=== PATIENT | female | born 1990 | race Caucasian/White ===

== ENCOUNTER → 2020-04-16 | Outpatient (CLI) | payer SELFPAY ==
--- NOTE | 2020-04-16 12:35 | Diagnostic Imaging Report ---
Indication: Back pain. Time of exam: 11:56 AM AP, lateral and both oblique views of the lumbar spine were obtained. Curvature and alignment of the lumbar spine is normal. Vertebral body heights are well maintained. No acute compression fracture seen. There is some degenerative disc disease at L5-S1 level with disc space narrowing and marginal spurring. No definite spondylolysis or spondylolisthesis is identified. Impression: L5-S1 degenerative disc disease. No other significant abnormality is detected. Dictated by: Dictated on workstation # [id number]
== END ==
LOC: RAD 11:40
PROVIDERS: ATTEND Nurse Practitioner Family
DX: M51.37 Other intervertebral disc degeneration, lumbosacral region (principal); Z87.828 Personal history of other (healed) physical injury and trauma
CPT/HCPCS: 72110

== ENCOUNTER 2021-02-02 12:05 | Emergency (ER) | payer SELFPAY ==
[~2021-02-02] VITALS: Ht 167.7 cm; Wt 115.7 kg
--- NOTE | 2021-02-02 13:12 | ED General ---
General Stated Complaint: COVID POSITIVE BODY ACHES,SORE THROAT Source of Information: Patient Exam Limitations: No Limitations (ANKITA ERICKSON APRN) History of Present Illness Date Seen by Provider: Feb 02, 2021 Time Seen by Provider: 13:10 Initial Comments 30-year-old female with history of obesity depression and questionable history of asthma presents to ER with worsening cough productive in nature and shortness of breath. She tested positive for Covid on 01/29/2021 and became symptomatic on , 01/28/2021. She is scheduled for monoclonal antibody infusion tomorrow. She follows with [facility] and was referred to ER for worsening symptoms. She is currently on prednisone. Timing/Duration: 3-4 Days Severity: Moderate Associated Systoms: Cough; No Headaches; Malaise; No Nausea/Vomiting; Weakness (ANKITA ERICKSON APRN) Allergies and Home Medications Allergies Coded Allergies: No Known Drug Allergies (Unverified , 02/02/21) Patient Home Medication List Home Medication List Reviewed: Yes (ANKITA ERICKSON APRN) Albuterol Sulfate (Proair Hfa) 1 Puff Puff, 2 PUFF IH Q4H PRN for SHORTNESS OF BREATH Prescribed by: ANKITA ERICKSON on 02/02/21 1438 Promethazine/Phenyleph/Codeine (Promethazine Vc-Codeine Soln) 473 Ml Syrup, 5 ML PO Q4H PRN for COUGH Prescribed by: ANKITA ERICKSON on 02/02/21 1439 Review of Systems Review of Systems Constitutional: see HPI EENTM: see HPI Respiratory: see HPI, cough, short of breath Cardiovascular: no symptoms reported Genitourinary: no symptoms reported Musculoskeletal: no symptoms reported Skin: no symptoms reported Psychiatric/Neurological: No Symptoms Reported Hematologic/Lymphatic: No Symptoms Reported (ANKITA ERICKSON APRN) Physical Exam Vital Signs Vital Signs - First Documented 02/02/21 13:04 Temp 36.9 Pulse 73 Resp 20 B/P (MAP) 136/108 (117) Pulse Ox 98 O2 Delivery Room Air (JADA VARGHESE MD) Vital Signs Capillary Refill : (ANKITA ERICKSON APRN) Height, Weight, BMI Height: '" Weight: lbs. oz. kg; BMI Method: General Appearance: No Apparent Distress, WD/WN, Obese (Alert and oriented very pleasant oxygen saturation 98% on room air heart rate 71 blood pressure 136/100. Lungs are clear) Eyes: Bilateral Eye Normal Inspection, Bilateral Eye PERRL, Bilateral Eye EOMI Neck: Full Range of Motion, Normal Inspection Respiratory: No Accessory Muscle Use, No Respiratory Distress Cardiovascular: Regular Rate, Rhythm, Normal Peripheral Pulses Gastrointestinal: Normal Bowel Sounds, Non Tender, Soft Extremity: Normal Capillary Refill, Normal Inspection Neurologic/Psychiatric: Alert, Oriented x3 Skin: Normal Color, Warm/Dry (ANKITA ERICKSON APRN) Progress/Results/Core Measures Suspected Sepsis SIRS Temperature: Pulse: Respiratory Rate: Laboratory Tests 02/02/21 13:08: White Blood Count 5.2 Blood Pressure / Mean: Laboratory Tests 02/02/21 13:08: Creatinine 0.67, Platelet Count 245, Total Bilirubin 0.2 (ANKITA ERICKSON APRN) Results/Orders Lab Results Laboratory Tests Test 02/02/21 13:08 Range/Units White Blood Count 5.2 4.3-11.0 10^3/uL Red Blood Count 4.84 3.80-5.11 10^6/uL Hemoglobin 14.1 11.5-16.0 g/dL Hematocrit 43 35-52 % Mean Corpuscular Volume 90 80-99 fL Mean Corpuscular Hemoglobin 29 25-34 pg Mean Corpuscular Hemoglobin Concent 33 32-36 g/dL Red Cell Distribution Width 13.2 10.0-14.5 % Platelet Count 245 130-400 10^3/uL Mean Platelet Volume 10.4 9.0-12.2 fL Immature Granulocyte % (Auto) 0 % Neutrophils (%) (Auto) 59 42-75 % Lymphocytes (%) (Auto) 30 12-44 % Monocytes (%) (Auto) 11 0-12 % Eosinophils (%) (Auto) 0 0-10 % Basophils (%) (Auto) 0 0-10 % Neutrophils # (Auto) 3.0 1.8-7.8 10^3/uL Lymphocytes # (Auto) 1.6 1.0-4.0 10^3/uL Monocytes # (Auto) 0.6 0.0-1.0 10^3/uL Eosinophils # (Auto) 0.0 0.0-0.3 10^3/uL Basophils # (Auto) 0.0 0.0-0.1 10^3/uL Immature Granulocyte # (Auto) 0.0 0.0-0.1 10^3/uL D-Dimer 0.48 0.00-0.49 UG/ML Sodium Level 139 135-145 MMOL/L Potassium Level 3.9 3.6-5.0 MMOL/L Chloride Level 103 98-107 MMOL/L Carbon Dioxide Level 24 21-32 MMOL/L Anion Gap 12 5-14 MMOL/L Blood Urea Nitrogen 10 7-18 MG/DL Creatinine 0.67 0.60-1.30 MG/DL Estimat Glomerular Filtration Rate 104 BUN/Creatinine Ratio 15 Glucose Level 87 70-105 MG/DL Calcium Level 8.7 8.5-10.1 MG/DL Corrected Calcium 8.9 8.5-10.1 MG/DL Total Bilirubin 0.2 0.1-1.0 MG/DL Aspartate Amino Transf (AST/SGOT) 16 5-34 U/L Alanine Aminotransferase (ALT/SGPT) 9 0-55 U/L Alkaline Phosphatase 65 40-136 U/L C-Reactive Protein High Sensitivity 1.08 H 0.00-0.50 MG/DL Total Protein 7.1 6.4-8.2 GM/DL Albumin 3.8 3.2-4.5 GM/DL Procalcitonin 0.02 <0.10 NG/ML Serum Test, Qualitative NEGATIVE NEGATIVE (JADA VARGHESE MD) Vital Signs/I&O 02/02/21 02/02/21 13:04 14:40 Temp 36.9 Pulse 73 72 Resp 20 20 B/P (MAP) 136/108 (117) 123/85 Pulse Ox 98 97 O2 Delivery Room Air Room Air (JADA VARGHESE MD) Vital Signs/I&O Capillary Refill : (ANKITA ERICKSON APRN) Departure Impression Primary Impression: COVID-19 Disposition: 01 HOME, SELF-CARE Condition: Stable Departure-Patient Inst. Decision time for Depature: 14:27 (ANKITA ERICKSON APRN) Referrals: NO,LOCAL PHYSICIAN (PCP) Primary Care Physician ENRIQUE EGAN (Family) Primary Care Physician Patient Instructions: COVID-19 ED Add. Discharge Instructions: 1. Tylenol and ibuprofen for body aches or fever. Cough medication as needed. Keep your appointment for the infusion tomorrow. Scripts Albuterol Sulfate (PROAIR HFA) 1 Puff Puff 2 PUFF IH Q4H PRN for SHORTNESS OF BREATH, #1 EA 1 PUFF = 90 MCG. Prov: ANKITA ERICKSON APRN 02/02/21 Promethazine/Phenyleph/Codeine (Promethazine Vc-Codeine Soln) 473 Ml Syrup 5 ML PO Q4H PRN for COUGH, #60 ML . Prov: ANKITA ERICKSON APRN 02/02/21 ATTENDING PHYSICIAN NOTE: I was physically present as attending physician in the emergency department during the care of this patient, but I was not directly involved in the decision making or delivery of care for this patient. (JADA VARGHESE MD) ANKITA ERICSKON APRN Feb 02, 2021 13:12 JADA VARGHESE MD Feb 02, 2021 18:58
[2021-02-02 13:23] LABS: BASOPHILS % (AUTO) 0 % (0-10); EOSINOPHILS % (AUTO) 0 % (0-10); HEMATOCRIT 43 % (35-52); HEMOGLOBIN 14.1 g/dL (11.5-16.0); LYMPHOCYTES # (AUTO) 1.6 10^3/uL (1.0-4.0); LYMPHOCYTES % (AUTO) 30 % (12-44); MEAN CORPUSCULAR HEMOGLOBIN 29 pg (25-34); MEAN CORPUSCULAR HGB CONC 33 g/dL (32-36); MEAN CORPUSCULAR VOLUME 90 fL (80-99); MEAN PLATELET VOLUME 10.4 fL (9.0-12.2); MONOCYTES # (AUTO) 0.6 10^3/uL (0.0-1.0); MONOCYTES % (AUTO) 11 % (0-12); NEUTROPHILS % (AUTO) 59 % (42-75); PLATELET COUNT 245 10^3/uL (130-400); WHITE BLOOD COUNT 5.2 10^3/uL (4.3-11.0)
[2021-02-02 13:40] LABS: ALBUMIN 3.8 GM/DL (3.2-4.5); POTASSIUM 3.9 MMOL/L (3.6-5.0)
[2021-02-02 13:42] LABS: CALCIUM 8.7 MG/DL (8.5-10.1)
[2021-02-02 13:43] LABS: TOTAL PROTEIN 7.1 GM/DL (6.4-8.2)
--- NOTE | 2021-02-02 13:44 | Diagnostic Imaging Report ---
INDICATION: Covid 19 positive. TIME OF EXAM: 1:37 PM. COMPARISON: No prior studies are available for comparison. FINDINGS: The heart size is normal. There is some questionable right perihilar infiltrate present. Otherwise, the lungs are clear. There is no effusion or pneumothorax. IMPRESSION: Questionable minimal right perihilar infiltrate. Dictated by: Dictated on workstation # [id number]
[2021-02-02 13:45] LABS: BILIRUBIN,TOTAL 0.2 MG/DL (0.1-1.0)
[2021-02-02 13:47] LABS: CREATININE SERUM 0.67 MG/DL (0.60-1.30)
[2021-02-02] MEDS ORDERED: [UNRECOGNIZED DRUG - CODE] PO ×2 (14:30→14:38)
[2021-02-02] MEDS ORDERED: RT-ALBUINH IH ×2 (14:31→14:38)
[2021-02-02 14:40] VITALS: BP 123/85
== END 2021-02-02 14:40 | disposition home or self-care (01) ==
LOC: EDUNIT# 12:05 → ER 12:08
DX: U07.1 COVID-19 (principal); E66.9 Obesity, unspecified
CPT/HCPCS: 36415; 71045; 80053; 84145; 84703; 85025; 85379; 86141

== ENCOUNTER 2021-02-03 11:17 | Outpatient (CLI) | payer SELFPAY ==
[~2021-02-03] VITALS: Ht 167.7 cm; Wt 125.7 kg
[~2021-02-03 11:17] MED LIST: RT-ALBUINH IH; [UNRECOGNIZED DRUG - CODE] PO
[2021-02-03 11:22] VITALS: BP 131/85
[2021-02-03] MEDS ORDERED: ACETAMINOPHEN 500 MG TAB (TYLENOL) PO PRN (12:15)
[2021-02-03] MEDS ORDERED: ONDANSETRON 4 MG/2 ML (SDV) Z0FRAN IV PRN (12:15)
[2021-02-03] MEDS ORDERED: CASIRIVIMAB/IMDEVIMAB 1,200 MG in NS (IVPB) 250 ML IV ONE (12:15)
[2021-02-03] MEDS ORDERED: EPINEPHrine INJECTION 1 MG/ML AMP IM PRN (12:15)
[2021-02-03] MEDS ORDERED: diphenhydrAMINE 50 MG/ML INJ (BENADRYL) IV PRN (12:15)
[2021-02-03 13:35] VITALS: BP 122/73
== END 2021-02-03 13:56 | disposition home or self-care (01) ==
LOC: INFUSION 11:17
PROVIDERS: ATTEND Internal Medicine
DX: U07.1 COVID-19 (principal)

== ENCOUNTER 2022-01-26 15:52 | Emergency (ER) | payer SELFPAY ==
[~2022-01-26] VITALS: Ht 167 cm; Wt 107.0 kg
[~2022-01-26 15:52] MED LIST changes: +ALBU8.5H6 IH; -RT-ALBUINH IH
[2022-01-26] MEDS ORDERED: morphine INJ 10 MG/ML 1ML (SYR OR VIAL) IVP STA (16:39)
[2022-01-26 16:45] LABS: BILIRUBIN,URINE NEGATIVE (NEGATIVE); CLARITY,URINE CLEAR; COLOR,URINE YELLOW; GLUCOSE, URINE (UA) NEGATIVE (NEGATIVE); KETONES,URINE NEGATIVE (NEGATIVE); LEUKOCYTE ESTERASE ,URINE NEGATIVE (NEGATIVE); NITRITE,URINE NEGATIVE (NEGATIVE); PROTEIN,URINE NEGATIVE (NEGATIVE)
[2022-01-26] MEDS ORDERED: ONDANSETRON 4 MG/2 ML (SDV) Z0FRAN IVP ONE (16:45)
[2022-01-26] MEDS ORDERED: NS 100 ML (IVPB) BAG IV ONE (16:45)
[2022-01-26] MEDS ORDERED: IOHEXOL 350 MG/ML 100 ML (OMNIPAQUE 350) VIAL IV ONE (16:45)
[2022-01-26] MEDS ORDERED: HOLD METFORMIN - RECEIVED CONTRAST 20 ML VIAL IV SCH (16:45)
[2022-01-26 16:55] LABS: BACTERIA,URINE NEGATIVE /HPF; RBC,URINE 50-100 /HPF; SQUAMOUS EPITHELIAL CELL,UR 0-2 /HPF
[2022-01-26 17:08] LABS: BASOPHILS # (AUTO) 0.1 10^3/uL (0.0-0.1); BASOPHILS % (AUTO) 1 % (0-10); EOSINOPHILS # (AUTO) 0.1 10^3/uL (0.0-0.3); EOSINOPHILS % (AUTO) 1 % (0-10); HEMATOCRIT 40 % (35-52); HEMOGLOBIN 13.2 g/dL (11.5-16.0); LYMPHOCYTES # (AUTO) 1.8 10^3/uL (1.0-4.0); LYMPHOCYTES % (AUTO) 26 % (12-44); MEAN CORPUSCULAR HEMOGLOBIN 28 pg (25-34); MEAN CORPUSCULAR HGB CONC 33 g/dL (32-36); MEAN CORPUSCULAR VOLUME 87 fL (80-99); MEAN PLATELET VOLUME 11.5 fL (9.0-12.2); MONOCYTES # (AUTO) 0.6 10^3/uL (0.0-1.0); MONOCYTES % (AUTO) 8 % (0-12); NEUTROPHILS # (AUTO) 4.4 10^3/uL (1.8-7.8); NEUTROPHILS % (AUTO) 65 % (42-75); PLATELET COUNT 240 10^3/uL (130-400); WHITE BLOOD COUNT 6.9 10^3/uL (4.3-11.0)
[2022-01-26 17:20] LABS: ALBUMIN 3.8 GM/DL (3.2-4.5)
--- NOTE | 2022-01-26 17:20 | Diagnostic Imaging Report ---
PROCEDURE: CT abdomen and pelvis with contrast. TECHNIQUE: Multiple contiguous axial images were obtained through the abdomen and pelvis after administration of intravenous contrast. Auto Exposure Controls were utilized during the CT exam to meet ALARA standards for radiation dose reduction. All CT scans use one or more of the following dose optimizing techniques: automated exposure control, MA and/or KvP adjustment based on patient size and exam type or iterative reconstruction. INDICATION: Intermittent right lower quadrant pain. COMPARISON: No priors. FINDINGS: The air-containing appendix is well visualized and is normal. There is no hydroureteronephrosis. No radiopaque urinary tract calculi found. The gallbladder is surgically absent. No pathological distention of bile ducts. Spleen, adrenals, and pancreas are unremarkable. The aorta is nonaneurysmal. There is no ileus or bowel obstruction. There is no abnormal fecal loading. There is no diverticulitis. The uterus, adnexa, and the urinary bladder are unremarkable. IMPRESSION: Normal appendix, unobstructed urinary tracts, and previous cholecystectomy without biliary dilatation. No acute-appearing abdominopelvic abnormalities. Dictated by: Dictated on workstation # [id number]
[2022-01-26 17:22] LABS: CALCIUM 9.3 MG/DL (8.5-10.1)
[2022-01-26 17:23] LABS: TOTAL PROTEIN 7.1 GM/DL (6.4-8.2)
[2022-01-26 17:25] LABS: BILIRUBIN,TOTAL 0.2 MG/DL (0.1-1.0)
[2022-01-26 17:26] LABS: CREATININE SERUM 0.66 MG/DL (0.60-1.30)
[2022-01-26] MEDS ORDERED: KETOROLAC 30 MG/ML VIAL IVP ONE (17:45)
[2022-01-26] MEDS ORDERED: KETO10TA PO (18:29)
[2022-01-26] MEDS ORDERED: ACHD5005 PO (18:29)
[2022-01-26] MEDS ORDERED: ONDA4TAB11 SL (18:29)
--- NOTE | 2022-01-26 18:29 | ED Abdominal Pain ---
General Chief Complaint: Abdominal/GI Problems Stated Complaint: LOWER RT ABD PAIN,NAUSEA FROM PAIN Nursing Triage Note: RIGHT LOWER ABD PAIN THAT HAS CAME IN WAVES SINCE MONDAY. Source of Information: Patient Exam Limitations: No Limitations (LARRY SANTOS APRN) History of Present Illness Date Seen by Provider: Jan 26, 2022 Time Seen by Provider: 16:05 Initial Comments Patient is a 31-year-old female who presents to the emergency department with right-sided abdominal pain that began 2 days ago and is worsened since. Patient denies any fever but states she has had some nausea which she feels like is related to the pain. She was seen at a clinic today where there was concern for possible acute appendicitis since he was thus referred here for further evaluation. Patient states the pain is worse with walking. She has not taken any patients for the symptoms today other than a dose of Pamprin this AM. She recently started her menses. States she does not have any dysuria or frequency. Denies any history of similar symptoms. States she did have a cholecystectomy in the past but that is her only historic abdominal surgery. (LARRY SANTOS APRN) Allergies and Home Medications Allergies Coded Allergies: No Known Drug Allergies (Unverified , 02/03/21) Patient Home Medication List Home Medication List Reviewed: Yes (LARRY SANTOS APRN) Albuterol Sulfate (Ventolin Hfa) 1 Puff Puff, 2 PUFF IH Q4H PRN for SHORTNESS OF BREATH Prescribed by: ANKITA ERICKSON on 02/02/21 1438 Hydrocodone Bit/Acetaminophen (HYDROcodone/APAP 5 MG/325 MG TAB) 1 Tab Tab, 1 TAB PO Q6H PRN for PAIN-SEVERE (8-10) Prescribed by: Larry Santos on 01/26/22 183 Ketorolac Tromethamine (Ketorolac Tromethamine) 10 Mg Tablet, 10 MG PO Q6H PRN for PAIN-SEE DOSE INSTRUCTIONS Prescribed by: Larry Santos on 01/26/22 182 Ondansetron (Ondansetron Odt) 4 Mg Tab.rapdis, 4 MG SL Q4H PRN for NAUSEA/VOMITING Prescribed by: Larry Santos on 01/26/22 182 Promethazine/Phenyleph/Codeine (Promethazine Vc-Codeine Soln) 473 Ml Syrup, 5 ML PO Q4H PRN for COUGH Prescribed by: ANKITA ERICKSON on 02/02/21 1439 Review of Systems Review of Systems Constitutional: no symptoms reported EENTM: No Symptoms Reported Respiratory: No Symptoms Reported Cardiovascular: No Symptoms Reported Gastrointestinal: See HPI, Abdominal Pain Genitourinary: No Symptoms Reported Musculoskeletal: no symptoms reported Skin: no symptoms reported Psychiatric/Neurological: No Symptoms Reported (LARRY SANTOS APRN) Past Dymwffl-Rebsne-Gklsvd Hx Patient Social History Tobacco Use?: No Substance use?: No Alcohol Use?: No (LARRY SANTOS APRN) Immunizations Up To Date First/Initial COVID19 Vaccinat: 2020 Second COVID19 Vaccination Gaurav: UNKNOWN COVID19 Vaccine Needle Setter: MODERNGiorgi (LARRY SANTOS APRN) Past Medical History Surgery/Hospitalization HX: SX: GALLBLADDER PMH: ASTHMA Last Menstrual Period: Jan 26, 2022 (LARRY SANTOS APRN) Physical Exam Vital Signs Vital Signs - First Documented 01/26/22 16:01 Temp 36.3 Pulse 94 Resp 16 B/P (MAP) 139/95 (110) Pulse Ox 97 O2 Delivery Room Air (JADA VARGHESE MD) Vital Signs Capillary Refill : Less Than 3 Seconds (LARRY SANTOS APRN) Height/Weight/BMI Height: '" Weight: lbs. oz. kg; 38.00 BMI Method: General Appearance: WD/WN, no apparent distress HEENT: PERRL/EOMI, normal ENT inspection, TMs normal, pharynx normal Neck: non-tender, full range of motion, supple, normal inspection Respiratory: chest non-tender, lungs clear, normal breath sounds, no respiratory distress, no accessory muscle use Cardiovascular: regular rate, rhythm Gastrointestinal: normal bowel sounds, soft, tenderness Extremities: normal range of motion, non-tender, normal inspection, no pedal edema, no calf tenderness Neurologic/Psychiatric: no motor/sensory deficits, alert, normal mood/affect, oriented x 3 Skin: normal color, warm/dry (LARRY SANTOS APRN) Progress/Results/Core Measures Results/Orders Lab Results Laboratory Tests Test 01/26/22 16:35 01/26/22 16:55 Range/Units Urine Color YELLOW Urine Clarity CLEAR Urine pH 6.0 5-9 Urine Specific [place] >=1.030 1.016-1.022 Urine Protein NEGATIVE NEGATIVE Urine Glucose (UA) NEGATIVE NEGATIVE Urine Ketones NEGATIVE NEGATIVE Urine Nitrite NEGATIVE NEGATIVE Urine Bilirubin NEGATIVE NEGATIVE Urine Urobilinogen 0.2 < = 1.0 MG/DL Urine Leukocyte Esterase NEGATIVE NEGATIVE Urine RBC (Auto) 3+ H NEGATIVE Urine RBC 50-100 H /HPF Urine WBC NONE /HPF Urine Squamous Epithelial Cells 0-2 /HPF Urine Crystals NONE /LPF Urine Bacteria NEGATIVE /HPF Urine Casts NONE /LPF Urine Mucus NEGATIVE /LPF Urine Culture Indicated NO Urine Test NEGATIVE NEGATIVE White Blood Count 6.9 4.3-11.0 10^3/uL Red Blood Count 4.64 3.80-5.11 10^6/uL Hemoglobin 13.2 11.5-16.0 g/dL Hematocrit 40 35-52 % Mean Corpuscular Volume 87 80-99 fL Mean Corpuscular Hemoglobin 28 25-34 pg Mean Corpuscular Hemoglobin Concent 33 32-36 g/dL Red Cell Distribution Width 12.6 10.0-14.5 % Platelet Count 240 130-400 10^3/uL Mean Platelet Volume 11.5 9.0-12.2 fL Immature Granulocyte % (Auto) 0 % Neutrophils (%) (Auto) 65 42-75 % Lymphocytes (%) (Auto) 26 12-44 % Monocytes (%) (Auto) 8 0-12 % Eosinophils (%) (Auto) 1 0-10 % Basophils (%) (Auto) 1 0-10 % Neutrophils # (Auto) 4.4 1.8-7.8 10^3/uL Lymphocytes # (Auto) 1.8 1.0-4.0 10^3/uL Monocytes # (Auto) 0.6 0.0-1.0 10^3/uL Eosinophils # (Auto) 0.1 0.0-0.3 10^3/uL Basophils # (Auto) 0.1 0.0-0.1 10^3/uL Immature Granulocyte # (Auto) 0.0 0.0-0.1 10^3/uL Sodium Level 140 135-145 MMOL/L Potassium Level 4.0 3.6-5.0 MMOL/L Chloride Level 105 98-107 MMOL/L Carbon Dioxide Level 25 21-32 MMOL/L Anion Gap 10 5-14 MMOL/L Blood Urea Nitrogen 8 7-18 MG/DL Creatinine 0.66 0.60-1.30 MG/DL Estimat Glomerular Filtration Rate 121 BUN/Creatinine Ratio 12 Glucose Level 98 70-105 MG/DL Calcium Level 9.3 8.5-10.1 MG/DL Corrected Calcium 9.5 8.5-10.1 MG/DL Total Bilirubin 0.2 0.1-1.0 MG/DL Aspartate Amino Transf (AST/SGOT) 10 5-34 U/L Alanine Aminotransferase (ALT/SGPT) 9 0-55 U/L Alkaline Phosphatase 64 40-136 U/L Total Protein 7.1 6.4-8.2 GM/DL Albumin 3.8 3.2-4.5 GM/DL (JADA VARGHESE MD) Medications Given in ED Current Medications Medications Dose Ordered Sig/Vidhi Route Start Time Stop Time Status Last Admin Dose Admin Iohexol 100 ml ONCE ONCE IV 01/26/22 16:45 01/26/22 16:46 DC 01/26/22 16:59 80 ML Ketorolac Tromethamine 15 mg ONCE ONCE IVP 01/26/22 17:45 01/26/22 17:46 DC 01/26/22 17:57 15 MG Ondansetron HCl 4 mg ONCE ONCE IVP 01/26/22 16:45 01/26/22 16:46 DC 01/26/22 16:56 4 MG Sodium Chloride 100 ml ONCE ONCE IV 01/26/22 16:45 01/26/22 16:46 DC 01/26/22 16:59 80 ML (JADA VARGHESE MD) Vital Signs/I&O 01/26/22 16:01 Temp 36.3 Pulse 94 Resp 16 B/P (MAP) 139/95 (110) Pulse Ox 97 O2 Delivery Room Air (JADA VARGHESE MD) Blood Pressure Mean: 110 Progress Progress Note : Progress Note Patient is nontoxic and well-hydrated on exam. Vital signs are reassuring. Patient does have some right lower quadrant tenderness to palpation without significant guarding. No abdominal rigidity or distention is appreciated. Laboratory evaluation is largely reassuring with no leukocytosis and no derangement on metabolic panel. Kidney function appears intact. Urinalysis notable for hematuria as expected given patient is on her menses. CT of the abdomen and pelvis with contrast reveals no acute abnormality. Patient was given a dose of morphine with some transient pain relief. Patient was then given a dose of ketorolac which further relieved the pain. There appears to be no acute surgical etiology of her pain at this time. No indication for admission at this time. Will discharge home with prescriptions for analgesia and antiemetics. Recommended close follow-up with PCP. Strict return precautions for urgent symptomology discussed. Patient verbalized understanding. (LARRY SANTOS APRN) Departure Impression Primary Impression: Abdominal pain Qualified Codes: R10.31 - Right lower quadrant pain Additional Impression: Nausea alone Disposition: HOME, SELF-CARE Condition: Improved Departure-Patient Inst. Decision time for Depature: 18:25 (LARRY SANTOS APRN) Referrals: [facility] (PCP/Family) Primary Care Physician Patient Instructions: Abdominal Pain, Adult ED Scripts Hydrocodone Bit/Acetaminophen (HYDROcodone/APAP 5 MG/325 MG TAB) 1 Tab Tab 1 TAB PO Q6H PRN for PAIN-SEVERE (8-10) for 3 Days, #12 TAB 0 Refills Prov: LARRY SANTOS APRN 01/26/22 Ketorolac Tromethamine (Ketorolac Tromethamine) 10 Mg Tablet 10 MG PO Q6H PRN for PAIN-SEE DOSE INSTRUCTIONS for 5 Days, #20 TAB 0 Refills Prov: LARRY SANTOS APRN 01/26/22 Ondansetron (Ondansetron Odt) 4 Mg Tab.rapdis 4 MG SL Q4H PRN for NAUSEA/VOMITING for 5 Days, #30 TAB 0 Refills Prov: LARRY SANTOS APRN 01/26/22 ATTENDING PHYSICIAN NOTE: I was physically present as attending physician in the emergency department during the care of this patient, but I was not directly involved in the decision making or delivery of care for this patient. (JADA VARGHESE MD) LARRY SANTOS APRN Jan 26, 2022 18:29 JADA VARGHESE MD Jan 26, 2022 20:32
[2022-01-26 19:37] VITALS: BP 135/79
== END 2022-01-26 19:47 | disposition home or self-care (01) ==
LOC: EDUNIT# 15:52 → ER 15:55
DX: R10.31 Right lower quadrant pain (principal); R11.0 Nausea; R31.9 Hematuria, unspecified; Z32.02 Encounter for pregnancy test, result negative; Z90.49 Acquired absence of other specified parts of digestive tract
CPT/HCPCS: 36415; 74177; 80053; 81000; 84703; 85025